=== PATIENT | female | born 1970 ===

== ENCOUNTER 2025-02-04 15:59 | Outpatient (CLI) | payer OTHER, SELFPAY ==
--- NOTE | 2025-02-04 15:30 | DI.RAD_ITS ---
Exam(s) XR KNEE RT 1V XR STANDING ALIGNMENT EXAM: XR STANDING ALIGNMENT CLINICAL HISTORY: DJD R KNEE. TECHNIQUE: 2D digital imaging was performed. Standing AP views were performed from the pelvis through the ankles. COMPARISON: CR XR KNEE 3V RT from 11/10/2024 FINDINGS: BONES: No acute fracture is present. No bony destructive lesion is seen. Leg length discrepancy: There is a 9 millimeter overall leg length discrepancy, with the left femoral head projecting superior to the right.. JOINTS: Knees: There is moderate to severe narrowing of the medial femoral tibial joint space of the right knee. There is mild varus angulation. The left knee joint spaces are maintained. The ankle joints are unremarkable. The hip joints are unremarkable. SOFT TISSUE: Venous varicosities of the left leg. Subcutaneous edema greater on the left. Chronic calcifications in the soft tissues of the left leg. 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 Mild overall leg length discrepancy. DATA REPOSITORY: RADIATION DOSE DELIVERED:
== END 2025-02-04 16:00 | disposition home or self-care (01) ==
LOC: DIORS 15:59
PROVIDERS: PCP Family Medicine; Visit Provider Student in an Organized Health Care Education/Training Program
DX: M17.11 Unilateral primary osteoarthritis, right knee (principal)
CPT/HCPCS: 73560; 77073